=== PATIENT | male | born 1980 | race Hispanic/Latino ===

== ENCOUNTER 2019-11-16 18:58 | Emergency (ER) | payer BC ==
[2019-11-16] MEDS ORDERED: diphenhydrAMINE 25 MG CAP ONE (19:49)
[2019-11-16] MEDS ORDERED: Famotidine 20 MG TAB ONE (19:49)
[2019-11-16] MEDS ORDERED: Dexamethasone 10 MG/ML VIAL ONE (19:49)
== END 2019-11-16 20:24 | disposition home or self-care (01) ==
LOC: ERS 18:58
DX: T78.40XA Allergy, unspecified, initial encounter (principal); X58.XXXA Exposure to other specified factors, initial encounter
CPT/HCPCS: 99283; J1100; Q0163